=== PATIENT | female | born 1980 | race Caucasian/White ===

== ENCOUNTER 2017-10-07 09:14 | Emergency (ER) | payer OTHER ==
[2017-10-07 09:37] LABS: #Basophils 0.1 thou/uL (0.0-0.2); #Eosinphils 0.2 thou/uL (0.0-0.7); #Lymphocytes 3.5 thou/uL (1.20-3.40); #Monocytes 0.9 thou/uL (0.11-0.59); #Neutrophils 5.6 thou/uL (1.40-6.50); %Eosinophils 2.1 % (0.0-10.0); %Lymphocytes 33.9 % (21.0-51.0); %Monocytes 8.4 % (0.0-10.0); %Neutrophils 54.6 % (42.0-75.0); Hemoglobin 12.9 g/dL (12.0-16.0); Mean Corpuscular HGB CONC 33.2 g/dL (32.0-36.0); Mean Corpuscular Hemoglobin 32.1 pg (27.0-31.0); Mean Corpuscular Volume 96.6 fl (81.0-99.0); Mean Platelet Volume 7.2 fL (7.4-10.4); Platelet Count 375 thou/uL (130-400); RBC Distribution Width 11.6 % (11.5-14.5); Red Blood Cell (RBC) Count 4.01 mill/uL (4.20-5.40); White Blood Cell (WBC) Count 10.3 thou/uL (4.8-10.8)
[2017-10-07] MEDS ORDERED: Ketorolac Tromethamine 30 MG/ML VIAL ONE (09:49)
[2017-10-07 10:02] LABS: ALT (SGPT) 15 U/L (8-55); AST (SGOT) 17 U/L (5-34); Albumin 4.5 g/dL (3.5-5.0); Alkaline Phosphatase 66 U/L (40-150); Anion Gap 14 mmol/L (10-20); BUN (Urea Nitrogen) 9 mg/dL (7.0-18.7); Bilirubin, Total 0.3 mg/dL (0.2-1.2); Calc. Creatinine Clearance 0 mL/min (70-130); Calcium 9.5 mg/dL (7.8-10.44); Carbon Dioxide 23 mmol/L (22-29); Chloride 102 mmol/L (98-107); Estimated GFR-MDRD 68; Globulin 2.6 g/dL (2.4-3.5); Glucose 110 mg/dL (70-105); Potassium 3.9 mmol/L (3.5-5.1); Protein, Total 7.1 g/dL (6.0-8.3); Sodium 135 mmol/L (136-145)
[2017-10-07] MEDS ORDERED: Lorazepam 2 MG/ML VIAL ONE (10:02)
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
[2017-10-07] MEDS ORDERED: Adacel (T-DAP) 0.5 ML VIAL ONE (10:25)
[2017-10-07 10:41] LABS: BHCG - Serum Negative (NEGATIVE); Pregs Control Background? CLEAR/WHITE (CLR/WHITE); Pregs Control Bar Appear? YES (CONTROL BAR)
[2017-10-07 11:27] LABS: Bilirubin Negative (Negative); Blood, Urine Negative (Negative); Clarity CLEAR (Clear); Glucose, Urine (Dipstick) Negative (Negative); Leukocyte Negative (Negative); Nitrite Negative (Negative); Protein, Urine (Dipstick) Negative (Neg-Trace); Specific Gravity, Urine 1.008 (1.002-1.036); Urobilinogen 0.2 mg/dL (0.2-1.0)
[2017-10-07 11:31] LABS: Pregnancy Test - Urine (BHCG) Negative (Negative); Pregu Control Background? CLEAR/WHITE (CLR/WHITE); Pregu Control Bar Appear? YES (CONTROL BAR); Specific Gravity 1.008 (1.002-1.036)
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
[2017-10-07] MEDS ORDERED: ISOVUE-370 76%-LOCM 1 ML ONE (12:49)
== END 2017-10-07 13:06 | disposition home or self-care (01) ==
LOC: ERS 09:14
DX: S61.411A Laceration without foreign body of right hand, initial encounter (principal); M48.00 Spinal stenosis, site unspecified; F17.210 Nicotine dependence, cigarettes, uncomplicated; V89.2XXA Person injured in unspecified motor-vehicle accident, traffic, initial encounter
CPT/HCPCS: 12001; 70450; 71260; 72125; 74177; 80053; 81003; 81025; 84703; 85025; 90471; 90715; 93005; 96361; 96374; 96375; J1885; J2060

== ENCOUNTER 2018-07-29 11:40 | Outpatient (CLI) | payer OTHER ==
--- NOTE | 2018-07-29 14:36 | MRI ---
MRI CERVICAL SPINE WITHOUT CONTRAST: HISTORY: Cervicalgia. Chronic cervical pain, radiating to the left shoulder, left arm. Associated spasm. COMPARISON: None. TECHNIQUE: A cervical spine MRI is performed without intravenous Gadolinium administration. Multisequential, mu ltiplanar imaging is performed. FINDINGS: There is 1.8 mm of anterolisthesis of C2 upon C3. No significant STIR hyperintensity to suggest vert ebral body edema or ligamentous injury. There is slight reversal of normal cervical lordosis centere d at C4 on C5. Overall, there is appropriate T1 marrow signal intensity of the cervical vertebrae. No fracture. Visualized brain parenchyma, cervicomedullary junction, cervical cord, and the upper thoracic cord perez ve a normal size and signal intensity. C2-C3: No significant central canal stenosis or neural foraminal narrowing. C3-C4: No significant central canal stenosis or neural foraminal narrowing. C4-C5: No significant central canal stenosis or neural foraminal narrowing. C5-C6: Broad-based disk-osteophyte complex effaces the ventral subarachnoid space. There is deformi ty of the cervical cord, without t2 hyperintensity of the cord. Moderate central canal stenosis. Mo derate right and mild to moderate left foraminal narrowing due to uncovertebral hypertrophy. C6-C7: No significant central canal stenosis. Mild to moderate right and moderate left foraminal na rrowing. C7-T1: No significant disk-osteophyte complex. No significant central canal stenosis. Neural jacqueline junaid are patent. IMPRESSION: Degenerative changes of the cervical spine as detailed above. POS: [facility]
--- NOTE | 2018-07-29 14:40 | MRI ---
MRI LUMBAR SPINE: HISTORY: Lumbago, M54.42, low back pain. FINDINGS: Multiplanar, multisequence noncontrast enhanced MRI images of the lumbar spine obtained. T12-L1: Unremarkable. L1-2: There is mild facet hypertrophy. The central canal and neural foramen are patent. L2-3: There is mild facet hypertrophy. The central canal and neural foramen are patent. L3-4: There is some disk desiccation seen. There is a mild broad-based disk bulge with bilateral fa cet hypertrophy. No significant degree of central stenosis seen. The neural foramen are patent. L4-5: Disk desiccation is seen. There is a broad-based disk bulge with bilateral facet hypertrophy. No significant degree of central stenosis is seen. The neural foramen are patent. L5-S1: Disk desiccation seen. Disk space height loss is seen. There is irregularity involving the inferior end plate of L4 and superior end plate of S1. There is a broad-based disk protrusion seen c ompressing the thecal sac. No significant central stenosis is seen. There is moderate bilateral watson ral foraminal narrowing seen due to facet hypertrophic changes. IMPRESSION: L5-S1 disk protrusion and moderate bilateral neural foraminal narrowing seen. POS: [facility]
== END 2018-07-29 11:41 | disposition home or self-care (01) ==
LOC: BICMRI 11:40
PROVIDERS: ATTEND Neurological Surgery
DX: M54.2 Cervicalgia (principal); M54.42 Lumbago with sciatica, left side; M51.27 Other intervertebral disc displacement, lumbosacral region; M48.061 Spinal stenosis, lumbar region without neurogenic claudication; M48.07 Spinal stenosis, lumbosacral region; M47.812 Spondylosis without myelopathy or radiculopathy, cervical region
CPT/HCPCS: 72141; 72148

== ENCOUNTER 2018-08-06 12:30 | Outpatient (CLI) | payer OTHER ==
[2018-08-06 14:22] LABS: Hemoglobin 12.5 g/dL (12.0-16.0); Mean Corpuscular HGB CONC 32.6 g/dL (32.0-36.0); Mean Corpuscular Hemoglobin 31.7 pg (27.0-31.0); Mean Corpuscular Volume 97.4 fL (78.0-98.0); Mean Platelet Volume 8.2 fL (7.4-10.4); Platelet Count 364 thou/uL (130-400); RBC Distribution Width 11.5 % (11.5-14.5); Red Blood Cell (RBC) Count 3.93 mill/uL (4.20-5.40); White Blood Cell (WBC) Count 8.1 thou/uL (4.8-10.8)
[2018-08-06 14:52] LABS: Anion Gap 13 mmol/L (10-20); BUN (Urea Nitrogen) 8 mg/dL (7.0-18.7); Calc. Creatinine Clearance 0 mL/min (70-130); Calcium 9.3 mg/dL (7.8-10.44); Carbon Dioxide 22 mmol/L (22-29); Chloride 105 mmol/L (98-107); Estimated GFR-MDRD 80; Glucose 77 mg/dL (70-105); Potassium 4.3 mmol/L (3.5-5.1); Sodium 136 mmol/L (136-145)
== END 2018-08-06 12:31 | disposition home or self-care (01) ==
LOC: LABBT 12:30
PROVIDERS: ATTEND Neurological Surgery
DX: Z01.818 Encounter for other preprocedural examination (principal); M54.12 Radiculopathy, cervical region
CPT/HCPCS: 80048; 85027; 93005; 93010

== ENCOUNTER 2018-08-11 05:38 | Day surgery (SDC) | payer OTHER ==
[2018-08-06 13:41] VITALS: BMI 27.2
[2018-08-11] MEDS ORDERED: CEFAZOLIN 2 GM/50 ML BAG ONE (06:08)
[2018-08-11] MEDS ORDERED: Sodium Chloride 0.9% 10 ML ONE (06:31)
[2018-08-11] MEDS ORDERED: Midazolam HCl 2 mg/2 ml Vial ONE (07:00)
[2018-08-11] MEDS ORDERED: Fentanyl 100 MCG/2 ML VIAL ONE ×3 (07:22→09:49)
[2018-08-11] MEDS ORDERED: PACU-Morphine 4MG/ML VIAL SLOW IVP PRN (07:47)
[2018-08-11] MEDS ORDERED: Promethazine HCl 25 MG/ML VIAL IM PRN (07:47)
[2018-08-11] MEDS ORDERED: Ondansetron HCl/PF 4 MG/2 ML Vial IVP PRN (07:47)
[2018-08-11] MEDS ORDERED: Promethazine HCl 25 MG/ML VIAL SLOW IVP PRN (07:47)
[2018-08-11] MEDS ORDERED: Morphine Sulfate 2 MG/ML SYRINGE SLOW IVP PRN (07:47)
[2018-08-11] MEDS ORDERED: Meperidine HCl/PF 25 MG/ML VIAL SLOW IVP PRN (07:47)
[2018-08-11] MEDS ORDERED: HYDROmorphone 2 MG/ML VIAL SLOW IVP PRN (07:47)
[2018-08-11] MEDS ORDERED: HYDROcodone/Acetaminophen 5/325 mg Tablet ONE (10:05)
[2018-08-11] MEDS ORDERED: Ondansetron PF 4 MG/2 ML Vial ONE (10:08)
[2018-08-11] MEDS ORDERED: PROPOFOL 200 MG/20 ML VIAL ONE (10:08)
[2018-08-11] MEDS ORDERED: Dexamethasone 20 MG/5 ML VIAL ONE (10:08)
[2018-08-11] MEDS ORDERED: Glycopyrrolate 0.2 MG/ML 5 ML SYRINGE ONE (10:08)
[2018-08-11] MEDS ORDERED: Lidocaine 1% PF 5 ML VIAL ONE (10:08)
[2018-08-11] MEDS ORDERED: Rocuronium Bromide 10 MG/ML (10ML VIAL) ONE (10:08)
[2018-08-11] MEDS ORDERED: PROVENTIL INHALER 6.7 G (200 INHALATIONS) ONE (10:08)
--- NOTE | 2018-08-11 10:09 | OP ---
DATE OF PROCEDURE: 08/11/2018 SYRUP MAKER: Rg Villa PA-C. PROCEDURES PERFORMED: Anterior cervical diskectomy C5-C6, interbody arthrodesis, intervertebral biomechanical device, local morselized autograft, demineralized bone matrix, and anterior titanium instrumentation C5-C6. DESCRIPTION OF PROCEDURE: The patient was brought to the operating room and intubated. She was positioned supine with the head in modest extension on a gel-filled donut. Incision was made in the right precervical area and dissecting medial to the sternocleidomastoid muscle, identified the anterior cervical spinal. The level was confirmed by x-ray. We debrided the anterior osteophytes, placed distraction across the disk space. Using operative microscope and microdissection technique, we removed the intervertebral disk to the level of the dura, decompressing the neural elements. Bony endplates were then decorticated for the first arthrodesis, and appropriate-sized intervertebral biomechanical PEEK device was brought into the field, filled demineralized bone matrix and local morselized autograft and tapped in place securely at C5-C6. Next, an anterior plate was brought into the field and secured to C5 and C6 using two 14-mm screws at each level. The wound was extensively irrigated, and maximum hemostasis was secured. The wound was closed in anatomic layers. Job ID: [id number]
== END 2018-08-11 11:10 | disposition home or self-care (01) ==
LOC: SDC 05:38
PROVIDERS: ATTEND Neurological Surgery
PROC: 0RT30ZZ Resection of Cervical Vertebral Disc, Open Approach (ICD-10-PCS; principal; 2018-08-11)
PROC: 0RG10A0 Fusion of Cervical Vertebral Joint with Interbody Fusion Device, Anterior Approach, Anterior Column, Open Approach (ICD-10-PCS; principal; 2018-08-11)
DX: M50.122 Cervical disc disorder at C5-C6 level with radiculopathy (principal); G89.29 Other chronic pain; M54.41 Lumbago with sciatica, right side; M54.42 Lumbago with sciatica, left side; F32.9 Major depressive disorder, single episode, unspecified; F41.9 Anxiety disorder, unspecified; Z79.899 Other long term (current) drug therapy
CPT/HCPCS: 76000; C1713; C1776; J0131; J1100; J2001; J2250; J2405; J2704; J3010; J3490

== ENCOUNTER 2018-08-26 15:34 | Outpatient (CLI) | payer OTHER ==
--- NOTE | 2018-08-26 20:00 | RAD ---
CERVICAL SPINE AP AND LATERAL STANDARD: History: M54.2 cervicalgia. Comparison: Cervical spine MRI 07-29-18 FINDINGS: Mild degenerative disc space narrowing at C4-5. There is C5-6 discectomy changes and ACDF hardware. N o migration of the disc cage. Open mouth odontoid view is normal. IMPRESSION: Satisfactory post-operative appearance. POS: [facility]
== END 2018-08-26 15:35 | disposition home or self-care (01) ==
LOC: TBSIIMAG 15:34
PROVIDERS: ATTEND Neurological Surgery
DX: M54.2 Cervicalgia (principal); Z98.890 Other specified postprocedural states
CPT/HCPCS: 72040

== ENCOUNTER 2018-10-14 14:24 | Outpatient (CLI) | payer OTHER ==
--- NOTE | 2018-10-14 15:15 | RAD ---
RADIOGRAPH CERVICAL SPINE 3 VIEWS: DATE: 10/14/18 HISTORY: 38-year-old female. Follow-up cervical spine surgery. Left cervical radiculopathy. COMPARISON: 08/26/18. FINDINGS: Anterior metallic plate and screws at C5 and C6. Tiny metallic markers for interbody graft in the wid ened C5-6 disc space. No severe disc space narrowing at any level. Alignment is normal. Vertebral bod y heights are maintained. No interval change overall. Nonacute aly-polisher numeral's fracture of C7 spinous process again noted. IMPRESSION: 1. Status posterior anterior cervical diskectomy and fusion at C5-6. 2. No interval change since 08/26/18. ANDREAS [] POS: ANGÉLICA
== END 2018-10-14 14:25 | disposition home or self-care (01) ==
LOC: TBSIIMAG 14:24
PROVIDERS: ATTEND Neurological Surgery
DX: M54.12 Radiculopathy, cervical region (principal); Z98.1 Arthrodesis status
CPT/HCPCS: 72040

== ENCOUNTER 2018-12-14 10:11 | Outpatient (CLI) | payer OTHER ==
--- NOTE | 2018-12-14 15:58 | MMO ---
Bilateral MAMMO Bilat Screen DDI. CLINICAL HISTORY: Patient is 38 years old and is seen for screening. The patient has no family history of breast cancer. The patient has no personal history of cancer. VIEWS: The views performed were: bilateral craniocaudal; bilateral mediolateral oblique; and bilateral exaggerated craniocaudal. This study has been interpreted with the assistance of computer-aided detection. MAMMOGRAM FINDINGS: There are scattered fibroglandular densities. Finding 1: There is a high density, oval mass with circumscribed margins seen in the posterior region of the right breast at 10 o'clock. Finding 2: There is a lobular mass seen in the anterior region of the left breast at 9 o'clock. IMPRESSION: FINDING 1: MASS IN THE RIGHT BREAST REQUIRES ADDITIONAL EVALUATION. SPOT COMPRESSION IS RECOMMENDED. AN ULTRASOUND EXAM IS RECOMMENDED. ADDITIONAL IMAGING. FINDING 2: MASS IN THE LEFT BREAST REQUIRES ADDITIONAL EVALUATION. SPOT COMPRESSION IS RECOMMENDED. AN ULTRASOUND EXAM IS RECOMMENDED. ADDITIONAL IMAGING. ACR BI-RADS Category 0 - Incomplete: Need additional imaging evaluation. [facility] will notify the patient of the need for additional imaging services. MAMMOGRAPHY NOTE: 1. A negative mammogram report should not delay a biopsy if a dominant of clinically suspicious mass is present. 2. Approximately 10% to 15% of breast cancers are not detected by mammography. 3. Adenosis and dense breasts may obscure an underlying neoplasm.
== END 2018-12-14 10:12 | disposition home or self-care (01) ==
LOC: SCSMAMMO 10:11
PROVIDERS: ATTEND Family Medicine
DX: Z12.31 Encounter for screening mammogram for malignant neoplasm of breast (principal); N63.10 Unspecified lump in the right breast, unspecified quadrant; N63.20 Unspecified lump in the left breast, unspecified quadrant
CPT/HCPCS: 77067

== ENCOUNTER 2018-12-31 12:21 | Outpatient (CLI) | payer OTHER ==
--- NOTE | 2018-12-31 13:18 | MMO ---
Bilateral MAMMO Bilat Diag DDI+RSUS. CLINICAL HISTORY: Patient is 38 years old and is seen for diagnostic exam. The patient has no family history of breast cancer. The patient has no personal history of cancer. VIEWS: The views performed were: bilateral craniocaudal with tomosynthesis; bilateral mediolateral oblique with tomosynthesis; and bilateral mediolateral with tomosynthesis. FILMS COMPARED: The present examination has been compared to prior imaging studies performed at [facility] on 12/14/2018, and at [facility] on 12/31/2018. MAMMOGRAM FINDINGS: There are scattered fibroglandular densities. There are oval masses with circumscribed margins seen in both breasts. These masses were shown to be cysts on ultrasound. There are no suspicious masses, suspicious calcifications, or new areas of architectural distortion. IMPRESSION: THERE IS NO MAMMOGRAPHIC EVIDENCE OF MALIGNANCY. A ROUTINE FOLLOW-UP MAMMOGRAM IN 1 YEAR IS RECOMMENDED. THE RESULTS OF THIS EXAM WERE SENT TO THE PATIENT. ACR BI-RADS Category 2 - Benign finding MAMMOGRAPHY NOTE: 1. A negative mammogram report should not delay a biopsy if a dominant of clinically suspicious mass is present. 2. Approximately 10% to 15% of breast cancers are not detected by mammography. 3. Adenosis and dense breasts may obscure an underlying neoplasm.
--- NOTE | 2018-12-31 14:02 | ULT ---
LIMITED BILATERAL BREAST ULTRASOUND: DATE: 12/31/2018. PROVIDED CLINICAL HISTORY: Abnormal mammogram. FINDINGS: Limited sonographic interrogation is performed of the 9 o'clock position of the right breast in the r egion of mammographic concern, demonstrating a benign cyst measuring about 1.4 cm. Limited sonographic interrogation was performed of the left breast at the 10 o'clock position demonst rating a benign-appearing cyst measuring about 1.2 cm. No concerning sonographic findings are seen i n either breast. IMPRESSION: BIRADS category 2 - benign findings. Return to annual screening mammography recommended. POS: OFF
== END 2018-12-31 12:22 | disposition home or self-care (01) ==
LOC: BICMAMMO 12:21
PROVIDERS: ATTEND Family Medicine
DX: N63.11 Unspecified lump in the right breast, upper outer quadrant (principal); N63.24 Unspecified lump in the left breast, lower inner quadrant
CPT/HCPCS: 77066; G0279

== ENCOUNTER 2019-05-02 15:05 | Outpatient (CLI) | payer OTHER ==
--- NOTE | 2019-05-02 17:20 | MRI ---
MRI CERVICAL SPINE CERVICAL SPINE WITHOUT CONTRAST: INDICATIONS: Cervical radiculopathy. FINDINGS: Postoperative changes with evidence of fusion at C5-C6. Anterior plate and screws are present at this level and produce metallic artifact which obscures detail at both these levels. The other cervical vertebrae maintain normal height. Disk spaces are preserved. Mild straightening of the lordotic curvature. At C2-C3 minimal anterolisthesis. This was described on prior MRI of 07/29/2018. At C3-C4 minimal disk bulge and spondylosis. Mild effacement of the anterior subarachnoid space. No c entral canal or foraminal stenosis. At C4-C5 slight posterolisthesis is present today. There is a posterior disk bulge with spondylosis w hich abuts the anterior cord. Mild uncinate hypertrophy on the right however no evidence of significa nt foraminal stenosis. At C5-C6 postoperative changes as noted above. Minimal posterior spondylosis at this level effaces th e anterior subarachnoid space. No significant cord impingement. Suggestion of mild right foraminal na rrowing due to hypertrophic change. At C6-C7 posterior disk bulge and spondylosis efface the anterior subarachnoid space. No evidence of cord impingement. There is evidence of left foraminal encroachment due to uncinate hypertrophy and/or disk osteophyte complex. Artifact obscures detail at this level. Cord signal is normally preserved. IMPRESSION: Postoperative changes are now seen at C5-C6 as described above. Artifact from the metallic plate and screws. Posterior disk bulge and spondylosis abut the cord at C4-C5. Consider CT scan to better evaluate hypertrophic change and foraminal encroachment. POS: [facility]
== END 2019-05-02 15:06 | disposition home or self-care (01) ==
LOC: BICMRI 15:05
PROVIDERS: ATTEND Neurological Surgery
DX: M47.22 Other spondylosis with radiculopathy, cervical region (principal); M50.121 Cervical disc disorder at C4-C5 level with radiculopathy; Z98.890 Other specified postprocedural states
CPT/HCPCS: 72141

== ENCOUNTER 2019-05-20 08:01 | Outpatient (CLI) | payer OTHER ==
--- NOTE | 2019-05-20 11:51 | CT ---
CT ABDOMEN AND PELVIS WITH CONTRAST: Date: 05/20/19 HISTORY: Abdominal pain. COMPARISON: CT from 2018. FINDINGS: There is some motion artifact throughout the lung bases. No pericardial effusion. The liver is unrema rkable, as well as the gallbladder, spleen, and pancreas. Adrenal glands are unremarkable. No retrope ritoneal or periaortic adenopathy. No dilated loops of large or small bowel. No free intraperitoneal gas or fluid. No hydronephrosis. Adrenal glands are unremarkable. Satisfactory appearance of the right S2 sacroiliac screw without involvement of the neural foramina. There is anterior plate and screw fixation of the pubic symphysis with moderate heterotopic ossificat ion. There is a posterior disc osteophyte complex at L4-5 causing mild spinal canal and neural foraminal n arrowing. Moderate facet arthrosis at L4-5 and L5-S1. IMPRESSION: No acute inflammatory process in the abdomen or pelvis. POS: [facility]
== END 2019-05-20 08:02 | disposition home or self-care (01) ==
LOC: BICCT 08:01
PROVIDERS: ATTEND Internal Medicine
DX: K29.50 Unspecified chronic gastritis without bleeding (principal)
CPT/HCPCS: 74177; 88305; 88312

== ENCOUNTER 2019-09-19 07:14 | Day surgery (SDC) | payer OTHER ==
[2019-09-16 15:11] VITALS: BMI 25.7
[2019-09-19 08:25] VITALS: BP 123/74; TEMP 98
--- NOTE | 2019-09-19 09:51 | RAD ---
Cervical, thoracic, lumbar myelogram HISTORY: Neck pain. Back pain. Prior surgery. FINDINGS: After explaining the procedure and answering all questions, the lower back was prepped and draped in usual sterile fashion. Sterile technique, buffered local anesthesia, fluoroscopic guidance, and a posterior approach were used to carefully advance a 22-gauge spinal needle to the the moody sac at the posterior L2-3 level. A total of 80 cc Isovue 300 M contrast was carefully instilled into the thecal sac under fluoroscopic control. Needle removed. Patient was tilted to move the contrast material to the cervical spine. Contrast flowed freely. Postoperative changes of the C5-6 level are apparent. No gross thecal sac com pression apparent. Patient tolerated procedure well and was transferred to CT in good condition for further imaging. Fluoroscopy time 0.4 minutes. IMPRESSION: Technically successful fluoroscopic guided complete spine myelogram. CT is pending.
--- NOTE | 2019-09-19 10:01 | CT ---
CT CERVICAL MYELOGRAM: INDICATIONS: 39-year-old female with cervical radiculopathy COMPARISON: MR the cervical spine dated May 02, 2019 TECHNIQUE: Multiple CT images were obtained of the cervical spine following the intrathecal administration of an Isovue-300 Msolution. Please see the cervical myelogram for details concerning the injection technique. Axial, coronal, and sagittal reformatted images were constructed from the raw data. FINDINGS: Visualized posterior fossa and paravertebral soft tissues: Within normal limits Lung apices: Clear. Spinal alignment: Within normal limits. Spinal instrumentation or postsurgical change: ACDF at C5-6 is stable. Craniocervical junction and C1-C2: Appears within normal limits. At C2-C3, there is no appreciable central canal or neuroforaminal narrowing.. At C3-C4, there is no appreciable central canal or neuroforaminal narrowing. At C4-C5, there is a mild broad-based disc bulge causing mild central canal narrowing without definit e cord flattening. At C5-C6, there is a mild residual osteophyte complex causing mild right neural foraminal narrowing w hich is stable. At C6-C7, there is uncovertebral hypertrophy and facet joint degenerative change inducing mild left n eural foraminal narrowing which is stable. At C7-T1, there is no appreciable central canal or neuroforaminal narrowing. IMPRESSION: 1. Postoperative cervical spine with mild cervical spondylosis. 2. Stable neural foraminal narrowing as above.
--- NOTE | 2019-09-19 10:05 | CT ---
CT THORACIC MYELOGRAM INDICATION: Thoracic spine pain and radiculopathy COMPARISON: None. TECHNIQUE: Multiple CT images were obtained of the thoracic spine following intrathecal administratio n of Isovue 300 M solution. Please see the lumbar myelogram for details concerning the injection technique. Axial, coronal and sagittal reformatted images were constructed from the raw data. FINDINGS: Spinal alignment: Within normal limits. Paraspinal soft tissues, visualized retroperitoneum and mediastinum: Normal appearing. At T1-T2, there is no appreciable osseous central canal or neural foraminal narrowing. At T2-T3, there is no appreciable osseous central canal or neural foraminal narrowing. At T3-T4, there is no appreciable osseous central canal or neural foraminal narrowing. At T4-T5, there is no appreciable osseous central canal or neural foraminal narrowing. At T5-T6, there is no appreciable osseous central canal or neural foraminal narrowing. At T6-T7, there is no appreciable osseous central canal or neural foraminal narrowing. At T7-T8, there is no appreciable osseous central canal or neural foraminal narrowing. At T8-T9, there is no appreciable osseous central canal or neural foraminal narrowing. At T9-T10, there is no appreciable osseous central canal or neural foraminal narrowing. At T10-T11, there is no appreciable osseous central canal or neural foraminal narrowing. At T11-T12, there is no appreciable osseous central canal or neural foraminal narrowing. At T12-L1, there is no appreciable osseous central canal or neural foraminal narrowing. IMPRESSION: 1. No appreciable central canal or neuroforaminal narrowing demonstrated.
--- NOTE | 2019-09-19 10:08 | CT ---
CT LUMBAR MYELOGRAM: INDICATIONS: Back pain and lumbar radiculopathy COMPARISON: MR lumbar spine dated July 29, 2018 TECHNIQUE: Multiple CT images were obtained of the lumbar spine following the intrathecal administration of an I sovue 300 M solution. Please see the lumbar myelogram for details concerning the injection technique. Axial, coronal, and sagittal reformatted images were constructed from the raw data. FINDINGS: Visualized retroperitoneal and paravertebral soft tissues: Within normal limits Spinal alignment: Within normal limits. Spinal instrumentation or postsurgical change: There is a right SI joint screw. At L5-S1, there is mild vacuum disc phenomenon in the L5-S1 disc. There is a broad-based bulge with a superimposed right paracentral protrusion which is stable. There is facet hypertrophy with loss of disc space height inducing moderate right and moderate to severe left neural foraminal narrowing whic h is stable.. At L4-5, there is a mild broad-based disc bulge with mild facet joint degenerative change but no appr eciable central canal or neural foraminal narrowing. At L3-4, there is a broad-based bulge inducing mild neural foraminal narrowing. This is stable to the prior exam. At L2-3, there is no appreciable central canal or neuroforaminal narrowing. At L1-L2, there is no appreciable central canal or neuroforaminal narrowing. At T12-L1, there is no appreciable central canal or neuroforaminal narrowing. IMPRESSION: 1. Stable mild lumbar spondylosis. 2. Stable moderate to severe left and moderate right neural foraminal narrowing at L5-S1. 3. Stable mild bilateral neural foraminal narrowing at L3-4.
[2019-09-19] MEDS ORDERED: Iopamidol-M 300 61% 15 ML VIAL ONE (15:04)
== END 2019-09-19 10:30 | disposition home or self-care (01) ==
LOC: RAD 07:14
PROVIDERS: ATTEND Neurological Surgery
PROC: B02B1ZZ Computerized Tomography (CT Scan) of Spinal Cord using Low Osmolar Contrast (ICD-10-PCS; principal; 2019-09-19)
DX: M54.16 Radiculopathy, lumbar region (principal); M54.12 Radiculopathy, cervical region; F41.9 Anxiety disorder, unspecified; F32.9 Major depressive disorder, single episode, unspecified; F17.200 Nicotine dependence, unspecified, uncomplicated; Z79.899 Other long term (current) drug therapy
CPT/HCPCS: 62305; 72126; 72129; 72132; Q9967

== ENCOUNTER 2020-05-31 13:18 | Outpatient (CLI) | payer OTHER ==
--- NOTE | 2020-05-31 14:27 | MMO ---
Bilateral MAMMO Bilat Screen [facility]DI+RUSS. CLINICAL HISTORY: Patient is 39 years old and is seen for screening. The patient has no family history of breast cancer. The patient has no personal history of cancer. VIEWS: The views performed were: bilateral craniocaudal with tomosynthesis and bilateral mediolateral oblique with tomosynthesis. FILMS COMPARED: The present examination has been compared to prior imaging studies performed at [facility] on 12/14/2018, and at [facility] on 12/31/2018. This study has been interpreted with the assistance of computer-aided detection. MAMMOGRAM FINDINGS: There are scattered fibroglandular densities. There are no suspicious masses, suspicious calcifications, or new areas of architectural distortion. IMPRESSION: THERE IS NO MAMMOGRAPHIC EVIDENCE OF MALIGNANCY. A ROUTINE FOLLOW-UP MAMMOGRAM IN 1 YEAR IS RECOMMENDED. THE RESULTS OF THIS EXAM WERE SENT TO THE PATIENT. ACR BI-RADS Category 1 - Negative MAMMOGRAPHY NOTE: 1. A negative mammogram report should not delay a biopsy if a dominant of clinically suspicious mass is present. 2. Approximately 10% to 15% of breast cancers are not detected by mammography. 3. Adenosis and dense breasts may obscure an underlying neoplasm. Reported by: MATTY ARAMBULA MD Electonically Signed: [id number]
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
== END 2020-05-31 13:19 | disposition home or self-care (01) ==
LOC: BICMAMMO 13:18
PROVIDERS: ATTEND Family Medicine
DX: Z12.31 Encounter for screening mammogram for malignant neoplasm of breast (principal); N95.0 Postmenopausal bleeding
CPT/HCPCS: 76856; 77063; 77067

== ENCOUNTER 2020-08-01 07:06 | Outpatient (CLI) | payer OTHER ==
[2020-08-02 08:46] LABS: SARS-CoV-2 PCR by NAA Not Detected (NotDetected)
== END 2020-08-01 07:07 | disposition home or self-care (01) ==
LOC: LABBT 07:06
PROVIDERS: ATTEND Internal Medicine
DX: Z01.812 Encounter for preprocedural laboratory examination (principal); Z20.822 Contact with and (suspected) exposure to COVID-19
CPT/HCPCS: 87635; U0003; U0005

== ENCOUNTER 2020-08-06 10:13 | Day surgery (SDC) | payer OTHER ==
[2020-08-02 12:30] VITALS: BMI 30.1
[2020-08-06] MEDS ORDERED: Bupivacaine PF 0.5% 30 ML VIAL ONE (11:47)
[2020-08-06] MEDS ORDERED: EPINEPHrine 1 MG/ML AMP ONE (11:47)
[2020-08-06] MEDS ORDERED: Midazolam HCl 2 mg/2 ml Vial ONE (12:07)
[2020-08-06] MEDS ORDERED: Propofol 1,000 MG/100 ML VIAL IV ONE (12:08)
[2020-08-06] MEDS ORDERED: Fentanyl 100 MCG/2 ML VIAL ONE (12:08)
--- NOTE | 2020-08-06 14:17 | RAD ---
Intraoperative imaging of the cervical spine: 08/06/2020 HISTORY: Dorsal column stimulators FINDINGS: A single coned down frontal radiograph of the cervical spine demonstrates to midline dorsal column stimulator leads overlying the C3 region. IMPRESSION: Cervical dorsal column stimulator leads.
[2020-08-06] MEDS ORDERED: HYDROcodone/Acetaminophen 5/325 mg Tablet ONE (15:05)
--- NOTE | 2020-08-08 08:25 | OP ---
DATE OF PROCEDURE: 08/06/2020 PREOPERATIVE DIAGNOSES: 1. Post-laminectomy syndrome. 2. Chronic pain syndrome. 3. Cervical radiculopathy. POSTOPERATIVE DIAGNOSES: 1. Post-laminectomy syndrome. 2. Chronic pain syndrome. 3. Cervical radiculopathy. PROCEDURE PERFORMED: 1. Spinal cord stimulator generator implant. 2. Spinal cord stimulator lead implant x2. BLOOD LOSS: Minimal. PROCEDURE: The patient was taken to the procedure room, placed prone on the procedure room table. A time-out was performed. Back was prepped with DuraPrep and sterile drapes were applied. Using fluoroscopy, we located the interspace of T4-T5. The skin was anesthetized with 0.5% Marcaine with epinephrine and we used a 10 blade scalpel to make an incision. We blunt dissected this down to fascia and we used the supplied 14-gauge Touhy needle in a paramedian technique to engage in the interspinous ligament. We then used loss of resistance to air and achieved access to the epidural space. We threaded an 8 contact Medtronic lead up the midline dorsal epidural space under continuous fluoro until it reached the bottom of C2. We performed the exact same technique on the contralateral side to place two parallel leads. The patient was then woken up and stimulation was performed and the patient noted paresthesia over all the pain areas. We then took the needles out and the stylets out taking care not to move the leads. We slipped anchors over these leads and the anchors were fixated to fascia using 2-0 silk suture x2 each. We created a tension relief loop. We then anesthetized the right upper buttock and made a horizontal incision. We blunt dissected this down to Abril's fascia and then blunt dissected superiorly and inferiorly to make a pocket. A tunneling device was used to make a tunnel between the 2 incisions. The leads were brought to the battery pocket area with the tunneling device. The leads were then connected to the battery and a torque wrench was used to fixate these to the battery as they checked impedances and impedances were all good. The battery was placed in the pocket easily. The fascial layers were approximated using 2-0 Vicryl suture in simple interrupted and horizontal mattress stitches. The skin was approximated using 3-0 Rapide using a subcuticular stitch. A layer of Dermabond was placed over both incisions and allowed to dry. Once dry, we placed sterile 4x4s and Medipore tape over this. The patient was then taken to Day Stay under stable condition. Job ID: [id number]
== END 2020-08-06 15:15 | disposition home or self-care (01) ==
LOC: SDC 10:13
PROVIDERS: ATTEND Specialist
PROC: 00HU3MZ Insertion of Neurostimulator Lead into Spinal Canal, Percutaneous Approach (ICD-10-PCS; principal; 2020-08-06)
PROC: 0JH70BZ Insertion of Single Array Stimulator Generator into Back Subcutaneous Tissue and Fascia, Open Approach (ICD-10-PCS; principal; 2020-08-06)
DX: M96.1 Postlaminectomy syndrome, not elsewhere classified (principal); G89.4 Chronic pain syndrome; M54.12 Radiculopathy, cervical region; Z79.899 Other long term (current) drug therapy
CPT/HCPCS: 72020; 76000; C1778; C1787; J0171; J0690; J2250; J2704; J3010; L8679; L8689; S0020

== ENCOUNTER 2020-11-28 10:23 | Outpatient (CLI) | payer OTHER | END 2020-11-28 10:24 | disposition home or self-care (01) | LOC: BICRAD 10:23 | PROVIDERS: ATTEND Nurse Practitioner Family | DX: M25.512 Pain in left shoulder (principal) ==

== ENCOUNTER 2021-03-21 09:20 | Emergency (ER) | payer OTHER ==
[2021-03-21] MEDS ORDERED: Iopamidol-370 76% 500 ML 1 ML ONE (10:48)
[2021-03-21 11:36] LABS: ALT (SGPT) 10 U/L (8-55); AST (SGOT) 12 U/L (5-34); Albumin 4.4 g/dL (3.5-5.0); Alkaline Phosphatase 70 U/L (40-110); Anion Gap 12 mmol/L (10-20); BUN (Urea Nitrogen) 8 mg/dL (7.0-18.7); Bilirubin, Total 0.4 mg/dL (0.2-1.2); Calc. Creatinine Clearance 0 mL/min (70-130); Calcium 9.9 mg/dL (7.8-10.44); Carbon Dioxide 27 mmol/L (22-29); Chloride 99 mmol/L (98-107); Globulin 3.4 g/dL (2.4-3.5); Glucose 92 mg/dL (70-105); Potassium 4.4 mmol/L (3.5-5.1); Protein, Total 7.8 g/dL (6.0-8.3); Sodium 134 mmol/L (136-145)
[2021-03-21 11:41] LABS: #Basophils 0.1 thou/uL (0.0-0.2); #Eosinphils 0.1 thou/uL (0.0-0.7); #Lymphocytes 2.9 thou/uL (1.20-3.40); #Monocytes 0.6 thou/uL (0.11-0.59); #Neutrophils 10.6 thou/uL (1.40-6.50); %Basophils 0.5 % (0.0-1.0); %Eosinophils 0.6 % (0.0-10.0); %Lymphocytes 20.2 % (21.0-51.0); %Neutrophils 74.8 % (42.0-75.0); Hemoglobin 12.7 g/dL (12.0-16.0); Mean Corpuscular HGB CONC 34.3 g/dL (32.0-36.0); Mean Corpuscular Hemoglobin 32.8 pg (27.0-31.0); Mean Corpuscular Volume 95.7 fL (78.0-98.0); Platelet Count 468 thou/uL (130-400); RBC Distribution Width 11.7 % (11.5-14.5); Red Blood Cell (RBC) Count 3.87 mill/uL (4.20-5.40); White Blood Cell (WBC) Count 14.2 thou/uL (4.8-10.8)
[2021-03-21 11:42] LABS: BHCG - Serum Negative (NEGATIVE); Pregs Control Background? CLEAR/WHITE (CLR/WHITE); Pregs Control Bar Appear? YES (CONTROL BAR)
[2021-03-21 11:56] LABS: Bilirubin Negative (Negative); Blood, Urine Negative (Negative); Clarity Clear (Clear); Glucose, Urine (Dipstick) Normal (Negative); Ketone, Urine Negative (Negative); Leukocyte Negative Leu/uL (Negative); Nitrite Negative (Negative); Protein, Urine (Dipstick) Negative (Neg-Trace); Specific Gravity, Urine 1.017 (1.002-1.036); Urobilinogen Normal mg/dL (Less than 2)
[2021-03-21] MEDS ORDERED: Ondansetron PF 4 MG/2 ML Vial ONE (12:41)
[2021-03-21] MEDS ORDERED: Morphine 4 MG/ML VIAL ONE (12:41)
[2021-03-21] MEDS ORDERED: Pantoprazole 40 MG VIAL ONE (12:42)
[2021-03-21 13:33] LABS: CKMB 0.5 ng/mL (0-6.6)
[2021-03-21 14:13] LABS: Troponin I Less than 0.010 ng/mL (< 0.028)
== END 2021-03-21 15:30 | disposition home or self-care (01) ==
LOC: ERS 09:20
DX: R10.12 Left upper quadrant pain (principal); F17.210 Nicotine dependence, cigarettes, uncomplicated; K21.9 Gastro-esophageal reflux disease without esophagitis; Z79.899 Other long term (current) drug therapy
CPT/HCPCS: 36415; 74177; 80053; 81003; 82553; 83690; 84484; 84703; 85025; 93005; 96374; 96375; C9113; J2270; J2405; Q9967

== ENCOUNTER 2021-04-11 07:25 | Outpatient (CLI) | payer OTHER | END 2021-04-11 07:26 | disposition home or self-care (01) | LOC: NM 07:25 | PROVIDERS: ATTEND Internal Medicine | DX: R10.13 Epigastric pain (principal); R11.0 Nausea; K30 Functional dyspepsia | CPT/HCPCS: 78264; A9541 ==

== ENCOUNTER 2021-06-12 12:11 | Outpatient (CLI) | payer OTHER | END 2021-06-12 12:12 | disposition home or self-care (01) | LOC: MRI 12:11 | PROVIDERS: ATTEND Nurse Practitioner Family | DX: M47.22 Other spondylosis with radiculopathy, cervical region (principal); Z98.890 Other specified postprocedural states | CPT/HCPCS: 72141 ==

== ENCOUNTER 2021-11-26 09:21 | Outpatient (CLI) | payer OTHER | END 2021-11-26 09:22 | disposition home or self-care (01) | LOC: BICRAD 09:21 | PROVIDERS: ATTEND Neurological Surgery | DX: M50.30 Other cervical disc degeneration, unspecified cervical region (principal); M54.50 Low back pain, unspecified; M43.12 Spondylolisthesis, cervical region; Z98.1 Arthrodesis status | CPT/HCPCS: 72040; 72100 ==

== ENCOUNTER 2022-01-02 08:02 | Outpatient (CLI) | payer OTHER | END 2022-01-02 08:03 | disposition home or self-care (01) | LOC: CT 08:02 | PROVIDERS: ATTEND Family Medicine | DX: R55 Syncope and collapse (principal); R56.9 Unspecified convulsions | CPT/HCPCS: 70450 ==

== ENCOUNTER 2022-02-06 12:27 | Outpatient (CLI) | payer OTHER | END 2022-02-06 12:28 | disposition home or self-care (01) | LOC: TBSIIMAG 12:27 | PROVIDERS: ATTEND Neurological Surgery | DX: M51.36 Other intervertebral disc degeneration, lumbar region (principal); M47.816 Spondylosis without myelopathy or radiculopathy, lumbar region; M47.817 Spondylosis without myelopathy or radiculopathy, lumbosacral region | CPT/HCPCS: 72148 ==

== ENCOUNTER 2022-10-28 07:49 | Outpatient (CLI) | payer OTHER | END 2022-10-28 07:50 | disposition home or self-care (01) | LOC: BICMAMMO 07:49 | PROVIDERS: ATTEND Obstetrics & Gynecology | DX: E28.39 Other primary ovarian failure (principal); M85.851 Other specified disorders of bone density and structure, right thigh; M85.852 Other specified disorders of bone density and structure, left thigh | CPT/HCPCS: 77080 ==

== ENCOUNTER 2023-05-10 01:39 | Emergency (ER) | payer OTHER ==
[2023-05-10] MEDS ORDERED: Ketorolac Tromethamine 30 MG/ML VIAL ONE (03:42)
[2023-05-10 03:49] LABS: Hematocrit 31.9 % (36.0-47.0); Hemoglobin 10.3 g/dL (12.0-16.0); Mean Corpuscular HGB CONC 32.3 g/dL (32.0-36.0); Mean Corpuscular Volume 89.9 fl (78.0-98.0); Mean Platelet Volume 9.2 fL (7.4-10.4); Platelet Count 468 10x3/uL (130-400); RBC Distribution Width 14.1 % (11.5-14.5); Red Blood Cell (RBC) Count 3.55 mill/uL (4.20-5.40); White Blood Cell (WBC) Count 13.8 10x3/uL (4.8-10.8)
[2023-05-10 03:57] LABS: Delete Auto Diff?? YES; Manual Diff?? YES
[2023-05-10 04:06] LABS: Bilirubin Negative (Negative); Blood, Urine Negative (Negative); CAUTI Indications for Culture Pelvic or flank pain; Clarity Clear (Clear); Glucose, Urine (Dipstick) Normal (Negative); Ketone, Urine Negative (Negative); Leukocyte Negative Leu/uL (Negative); Nitrite Negative (Negative); Protein, Urine (Dipstick) Negative (Neg-Trace); RBC/HPF 0-3 HPF (0-3); Specific Gravity, Urine 1.011 (1.002-1.036); Squamous Epithelial 0-3 HPF (0-3); Urobilinogen Normal mg/dL (Less than 2); WBC/HPF 0-3 HPF (0-3); pH, Urine 6.5 (5.0-9.0)
[2023-05-10 04:13] LABS: Bacteria/HPF 1+ HPF (None Seen)
[2023-05-10 04:15] LABS: ALT (SGPT) 12 U/L (8-55); AST (SGOT) 14 U/L (5-34); Albumin 4.4 g/dL (3.5-5.0); Alkaline Phosphatase 51 U/L (40-110); Anion Gap 16 mmol/L (10-20); BUN (Urea Nitrogen) 9 mg/dL (7.0-18.7); Bilirubin, Total 0.2 mg/dL (0.2-1.2); Calc. Creatinine Clearance 0 mL/min (70-130); Calcium 9.2 mg/dL (7.8-10.44); Carbon Dioxide 22 mmol/L (22-29); Chloride 102 mmol/L (98-107); Estimated GFR 88; Globulin 2.9 g/dL (2.4-3.5); Glucose 92 mg/dL (70-105); Potassium 4.3 mmol/L (3.5-5.1); Protein, Total 7.3 g/dL (6.0-8.3); Sodium 136 mmol/L (136-145)
[2023-05-10 04:16] LABS: Urine Culture Reflex No No
[2023-05-10 04:27] LABS: BHCG - Serum Negative (NEGATIVE); Pregs Control Background? CLEAR/WHITE (CLR/WHITE); Pregs Control Bar Appear? YES (CONTROL BAR)
[2023-05-10 04:29] LABS: Anisocytosis SLIGHT = 6-15 cells HPF (0-5); Band 1 % (5-11); CellaVision Operator ID lab.sh2; Eosinophils 2 % (0-10); Lymphocytes 28 % (21-51); Macrocytosis SLIGHT = 6-15 cells HPF (0-5); Monocytes 10 % (0-10); Neutrophil 57 % (42-75); Platelet Adequacy Comment Platelets Increased; Polychromasia SLIGHT = 2-3 cells HPF (0-2); Target Cells MODERATE= 6-15 cells HPF (0-1); Total Cell Count 100; Vacuoles SLIGHT
[2023-05-10] MEDS ORDERED: Iopamidol 370 76% 100 ML VIAL ONE (08:32)
== END 2023-05-10 06:18 | disposition home or self-care (01) ==
LOC: ERS 01:39
DX: K62.89 Other specified diseases of anus and rectum (principal)
CPT/HCPCS: 36415; 74177; 80053; 81001; 84703; 85025; 96374; J1885; Q9967

== ENCOUNTER 2024-07-19 10:46 | Outpatient (CLI) | payer OTHER | END 2024-07-19 10:47 | disposition home or self-care (01) | LOC: MRI 10:46 | PROVIDERS: ATTEND Family Medicine | DX: M25.512 Pain in left shoulder (principal); M75.112 Incomplete rotator cuff tear or rupture of left shoulder, not specified as traumatic ==